=== PATIENT | male | born 1995 | race Hispanic/Latino ===

== ENCOUNTER 2021-02-17 00:33 | Emergency (ER) | payer OTHER ==
[~2021-02-17] VITALS: Ht 154.9 cm; Wt 91.6 kg
[2021-02-17 01:02] VITALS: BP 125/71
== END 2021-02-17 01:02 | disposition home or self-care (01) ==
LOC: FSED 00:58
DX: N50.811 Right testicular pain (principal); D69.3 Immune thrombocytopenic purpura
CPT/HCPCS: 99282